=== PATIENT | male | born 1980 | race African-American/Black ===

== ENCOUNTER 2019-01-06 03:05 | Emergency (ER) | payer SELFPAY ==
[~2019-01-06] VITALS: Ht 185.4 cm; Wt 93.0 kg
[2019-01-06 03:05] VITALS: BP 132/74
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
[2019-01-06] MEDS ORDERED: IBUPROFEN 600 MG TAB PO ONE (03:15)
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
[2019-01-06 03:45] VITALS: BP 132/74
--- NOTE | 2019-01-06 03:46 | NUR ---
PATIENT BIB [facility]. PATIENT EXAMINED BY DR. TIERNEY. PATIENT MEDICALLY CLEARED AND RELEASED IN CUSTODY IN STABLE CONDITION. ORIGINAL PRE-BOOK FORM GIVEN TO OFFICER DREA.
== END 2019-01-06 03:30 ==
LOC: MED 03:05
DX: S16.1XXA Strain of muscle, fascia and tendon at neck level, initial encounter (principal); F10.10 Alcohol abuse, uncomplicated; Z02.89 Encounter for other administrative examinations; V47.9XXA Unspecified car occupant injured in collision with fixed or stationary object in traffic accident, initial encounter; Y93.89 Activity, other specified; Y92.89 Other specified places as the place of occurrence of the external cause; Y99.8 Other external cause status
CPT/HCPCS: 99283